=== PATIENT | female | born 1980 ===

== ENCOUNTER 2017-03-05 19:31 | Emergency (ER) | payer BC ==
[2017-03-05 19:40] VITALS: BP 162/93; PULSE 99; RESP 20; TEMP 99; O2SAT 100
[2017-03-05 20:49] LABS: BASO % 0.2 % (0.0-2.0); EOS % 0.3 % (0.0-4.0); HEMATOCRIT 37.5 % (34.0-47.0); LYMPH # 1.5 K/uL (1.0-4.3); LYMPH % 15.8 % (20.0-40.0); MEAN CELL VOLUME 92.2 fl (81.0-99.0); MEAN CORPUSCULAR HEMOGLOBIN 31.3 pg (27.0-31.0); MEAN CORPUSCULAR HGB CONC 33.9 g/dL (33.0-37.0); MEAN PLATELET VOLUME 8.6 fl (7.2-11.7); MONO # 0.6 K/uL (0.0-0.8); MONO % 6.7 % (0.0-10.0); NEUT # 7.3 K/uL (1.8-7.0); RED CELL DISTRIBUTION WIDTH 13.2 % (11.5-14.5); WHITE BLOOD COUNT 9.5 K/uL (4.8-10.8)
[2017-03-05 21:06] LABS: ALB/GLOB RATIO 1.4 (1.0-2.1); ALKALINE PHOSPHATASE 55 U/L (38-126); ALT/SGPT 27 U/L (9-52); AST/SGOT 23 U/L (14-36); BILIRUBIN,TOTAL 0.5 mg/dl (0.2-1.3); BLOOD UREA NITROGEN 11 mg/dl (7-17); CALCIUM 9.4 mg/dL (8.4-10.2); CARBON DIOXIDE 25 mmol/L (22-30); CHLORIDE 106 mmol/L (98-107); GFR AFRICAN-AMERICAN > 60; GLUCOSE,RANDOM 94 mg/dL (65-105); POTASSIUM 3.8 MMOL/L (3.6-5.0); SODIUM 142 mmol/l (132-148); TOTAL PROTEIN 7.8 G/DL (6.3-8.2)
--- NOTE | 2017-03-05 21:22 | ED PDOC ---
HPI: General Adult Time Seen by Provider: 03/05/17 19:53 Chief Complaint (Nursing): Dizziness/Lightheaded Chief Complaint (Provider): Dizziness/Lightheaded History Per: Patient History/Exam Limitations: no limitations Onset/Duration Of Symptoms: Days (x2 weeks) Current Symptoms Are (Timing): Still Present Additional Complaint(s): 36 y/o female with a past medical history of anxiety disorder (does not take medications) presents to the emergency department with a complaint of severe panic attacks and episodes of dizziness x2 weeks. Reports she experienced a panic attack early today at the doctors office because she kept hearing popping in the ears which made her anxious and shaky. Denies headache, weakness, numbness, fever, or chest pain. Of note, patient had been treated for Rheumatoid by taking prednisone for 6 months but stopped 2 weeks ago by tapering the dose. Past Medical History Reviewed: Historical Data, Nursing Documentation, Vital Signs Vital Signs: Last Vital Signs Temp 99.0 F 03/05/17 19:36 Pulse 99 H 03/05/17 19:36 Resp 20 03/05/17 19:36 BP 162/93 H 03/05/17 19:36 Pulse Ox 100 03/05/17 23:04 - Medical History PMH: Anxiety - Surgical History Surgical History: Tonsillectomy - Family History Family History: States: Unknown Family Hx - Social History Current smoker - smoking cessation education provided: No Alcohol: Occasional Drugs: Denies - Immunization History Hx Tetanus Toxoid Vaccination: Yes (03/13/16) - Home Medications Home Medications: Ambulatory Orders Medication Instructions Recorded Cyclobenzaprine [Cyclobenzaprine 10 mg PO Q8 PRN #30 tab 09/17/16 HCl] - Allergies Allergies/Adverse Reactions: Allergies Allergy/AdvReac Type Severity Reaction Status Date / Time No Known Allergies Allergy Verified 09/17/16 15:30 Review of Systems ROS Statement: Except As Marked, All Systems Reviewed And Found Negative Constitutional: Negative for: Fever Cardiovascular: Negative for: Chest Pain Neurological: Positive for: Dizziness. Negative for: Weakness, Numbness, Headache Psych: Positive for: Anxiety, Other (Severe panic attack) Physical Exam - Reviewed Nursing Documentation Reviewed: Yes Vital Signs Reviewed: Yes - Physical Exam Appears: Positive for: Non-toxic, No Acute Distress Head Exam: Positive for: ATRAUMATIC, NORMAL INSPECTION, NORMOCEPHALIC Skin: Positive for: Normal Color, Warm, Dry Eye Exam: Positive for: Normal appearance, EOMI ENT: Positive for: Normal ENT Inspection. Negative for: Pharyngeal Erythema Neck: Positive for: Normal, Supple Cardiovascular/Chest: Positive for: Regular Rate, Rhythm. Negative for: Murmur Respiratory: Positive for: Normal Breath Sounds. Negative for: Accessory Muscle Use, Respiratory Distress Gastrointestinal/Abdominal: Positive for: Normal Exam, Soft. Negative for: Tenderness Extremity: Positive for: Normal ROM. Negative for: Pedal Edema Neurologic/Psych: Positive for: Alert, Oriented, Mood/Affect (Anxious) - Laboratory Results Result Diagrams: 03/05/17 20:40 03/05/17 20:40 - ECG O2 Sat by Pulse Oximetry: 100 (RA) Pulse Ox Interpretation: Normal - Progress Re-evaluation Time: 23:03 Condition: Re-examined, Improved Medical Decision Making Medical Decision Making: Time: 19:53 Initial impression: Anxiety and dizziness. Differential includes generalized anxiety and panic attacks as a side affect from prednisone including hypertension, electrolyte abnormalities. Less likely cardiac dysrhythmia. Initial plan: --Electrocardiogram STAT --ED Urine Dipstick (POC) --ED Urine --EKG-ED (EDNURTX) --CBC w/ differential --Reevaluation --EKG: Normal Sinus Rhythm of 84 bpm. Normal QRS. No ST changes. Stable for discharge as per [employer] Marty Baker ( Dr Espinal) Scribe Attestation: Documented by Syeda Spann, acting as a scribe for Norma Tello MD. Provider Scribe Attestation: All medical record entries made by the Scribe were at my direction and personally dictated by me. I have reviewed the chart and agree that the record accurately reflects my personal performance of the history, physical exam, medical decision making, and the department course for this patient. I have also personally directed, reviewed, and agree with the discharge instructions and disposition. Disposition - Clinical Impression Clinical Impression: Anxiety - Patient ED Disposition Is Patient to be Admitted: No Doctor Will See Patient In The: Office Counseled Patient/Family Regarding: Studies Performed, Diagnosis, Need For Followup - Disposition Referrals: Tj Alcocer MD [Staff Provider] - Asim Kirk MD [Family Provider] - Disposition: Routine/Home Disposition Time: 23:04 Condition: GOOD Additional Instructions: Follow up with your PCP in 2-3 days. Instructions: Anxiety (ED)
--- NOTE | 2017-03-06 10:44 | CARD ---
APPROVED REPORT EKG Measurement Heart [id number] <Conclusion> Normal sinus rhythm Normal ECG
== END 2017-03-05 23:00 | disposition home or self-care (01) ==
LOC: H.ER 19:31
DX: F41.9 Anxiety disorder, unspecified (principal); R42 Dizziness and giddiness